=== PATIENT | female | born 1940 | race Caucasian/White ===

== ENCOUNTER 2016-10-03 14:15 | Emergency (ER) | payer MEDICARE ==
[2016-10-03] MEDS ORDERED: DIPHENHYDRAMINE 50 MG/ML VIAL ONE (14:53)
[2016-10-03] MEDS ORDERED: HALOPERIDOL 5 MG/ML VIAL ONE (14:53)
[2016-10-03] MEDS ORDERED: NORMAL SALINE 500 ML IV ONE (14:54)
--- NOTE | 2016-10-03 14:57 | CT REPORT ---
HISTORY: Headache, nausea, vomiting, dizziness COMPARISON: None. TECHNIQUE: Axial non-contrast images obtained from skull vertex through foramen magnum. Dose reduction technique was utilized. FINDINGS: BRAIN: There is age related atrophy and decreased attenuation in the periventricular white matter consistent with chronic small vessel ischemic change. No acute intracranial hemorrhage. No mass effect or hyd rocephalus. There is no CT evidence of infarction. BONES AND EXTRACRANIAL SOFT TISSUES: The orbits are unremarkable. The paranasal sinuses and mastoid air cells are clear. The calvarium is intact. IMPRESSION: 1. No acute intracranial abnormality. 2. Age related atrophy and sequela of chronic microvascular ischemia. Final Electronic Signature: This report was electronically signed by Chente Flores MD on 10/03/2016 2:55 PM. dayana /
--- NOTE | 2016-10-03 16:14 | ER PHYSICIAN DOCUMENTATION ---
Physician Documentation [facility] Name:Joy Calvo Age:76 yrs Sex:Female :1940 Arrival Date:10/03/2016 Time:14:16 Bed1 Private MD: Edgar Thakur Disposition: 10/05 01:11 Chart complete. tl1 Disposition: 10/03/16 15:57 Discharged to Home/Self Care. Impression: Dizziness - Vertigo, Benign Positional Vertigo. - Condition is Good. - Discharge Instructions: BENIGN POSITIONAL VERTIGO, VERTIGO, Unspecified. - Prescriptions for meclizine 12.5 mg Oral tablet - take 1 tablet by ORAL route 3 times per day As needed; 20 tablet. - Medical Reconciliation form form. - Follow up: Trevor Thorne MD; When: 1 - 2 days; Reason: Recheck today's complaints, Continuance of care. - Problem is new. - Symptoms have improved. HPI: 10/03 14:34 This 76 yrs old Female presents to ER via Wheelchair with complaints of tl1 Vomiting, Headache. 14:34 She was well until 0530 when she awakened with a typical ocular migraine characterized tl1 by a right jagged semicircular bright light, that lasted about 40 minutes, then resolved. She was then well until about an hour ago when she awakened from her nap and noted severe dizziness on awakening and had a difficult time walking to the bathroom This dizziness was described as both a lightheadedness and a spinning sensation that was worse with changing head positions. She then lay down and a short time later noted a sharp "pick" like severe pain. She has chronic tinnitus; unchanged. No change in her hearing. Denies focal numbness, weakness or tingling. No diplopia. No speech changes.. Historical: - Allergies: Ciprofloxacin (Upset stomach); diclofenac sodium; Norvasc (orthostatic ); Biaxin; Lisinopril (cough ); Desyrel; Prednisone (Upset stomach); Niacin (pruritis); Zetia (myalgias ); Tricor; Vioxx; Lovastatin; Compazine; - PMHx: osteopenia; spinal stenosis; DEGENERATIVE DISC DISEASE; OSTEOARTHRITIS; GI BLEED; IRRITABLE BOWEL SYNDROME; constipation; GERD; HYPERTENSION; MIGRAINES; HYPOTHYROIDISM; DEPRESSION; - Tetanus: < 10 years. - Ebola Screening: : Patient negative for fever greater than or equal to 101.5 degrees Fahrenheit, and additional compatible Ebola Virus Disease symptoms. Patient denies exposure to infectious person. Patient denies travel to an Ebola-affected area in the 21 days before illness onset. No symptoms or risks identified at this time. . - Immunization history: Flu Vaccine < 1 year. - Social history: Smoking status: Patient states was never smoker of tobacco. ROS: 14:46 Abdomen/GI: Negative for abdominal pain, diarrhea, abdominal cramps, hematemesis, tl1 black/tarry stool, bowel incontinence. 14:46 All other systems are negative. Exam: 14:46 Head/Face: Normocephalic, atraumatic. tl1 Eyes: Pupils equal round and reactive to light, extra-ocular motions intact. Lids and lashes normal. Conjunctiva and sclera are non-icteric and not injected. Cornea within normal limits. Periorbital areas with no swelling, redness, or edema. ENT: Nares patent. No nasal discharge, no septal abnormalities noted. Tympanic membranes are normal and external auditory canals are clear. Oropharynx with no redness, swelling, or masses, exudates, or evidence of obstruction, uvula midline. Mucous membranes moist. 14:46 Neck: Trachea midline, no thyromegaly or masses palpated, and no cervical tl1 lymphadenopathy. Supple, full range of motion without nuchal rigidity, or vertebral point tenderness. No Meningismus. 14:46 Constitutional: The patient appears alert, awake, non-diaphoretic, non-toxic, well developed, well hydrated, well groomed, well nourished, in obvious distress, mildly distressed, uncomfortable. 14:46 Cardiovascular: Rate: normal, Rhythm: regular, Heart sounds: normal, Edema: 1+ edema to level of left ankle and right ankle. 14:46 Respiratory: the patient does not display signs of respiratory distress, Respirations: normal, Breath sounds: are normal. 14:46 Abdomen/GI: Inspection: abdomen appears normal. 14:46 Back: CVA tenderness, is absent. Vital Signs: 14:18 BP 135 / 65; Pulse 58; Resp 18; Temp 97.8(O); Pulse Ox 98% on R/A; Weight 47.17 kg (R); arc Height 4 ft. 11 in. (149.86 cm) (R); Pain 8/10; 16:13 BP 133 / 74; Pulse 18; Resp 18; Pulse Ox 95% on R/A; Pain 0/10; bw2 14:18 Body Mass Index 21.01 (47.17 kg, 149.86 cm) arc NIH Stroke Scale Scores: 14:26 NIHSS Score: 0 bw2 MDM: 14:30 Patient medically screened. tl1 16:30 Differential diagnosis: central vs peripheral vertigo. Data reviewed: vital signs, tl1 nurses notes, radiologic studies, CT scan, and as a result, I will discharge patient. Counseling: I had a detailed discussion with the patient and/or guardian regarding: the historical points, exam findings, and any diagnostic results supporting the discharge/admit diagnosis, the need for outpatient follow up, with the patient's primary care provider, to return to the emergency department if symptoms worsen or persist or if there are any questions or concerns that arise at home. Response to treatment: the patient's symptoms have markedly improved after treatment, and as a result, I will discharge patient. ED course: During her initial exam she was unable to tolerate the Halpike/Pemberton maneuver. Her head CT showed no apparent acute abnormalities. I told her I thought the chance that this is a centrally mediated vertigo is small. If her symptoms persist, she may need an MRI, which is unavailable today. She is comfortable going home with her and he is confident he can care for her in the short term. She needs to f/u with her PCP on Tuesday,, tomorrow.. 10/03 14:59 Order name: CAT SCAN; HEAD W/O CON [id number]; Complete Time: 15:55 EDMS 10/03 15:44 Interpretation: age related ischemic changes. NAD. See radiologist report. tl1 Dispensed Medications: 14:48 Drug: Haldol 2.5 mg; Route: IVP; Site: left antecubital; bw2 15:07 Follow up: Response: No adverse reaction bw2 14:48 Drug: Benadryl 25 mg; Route: IVP; Site: left antecubital; bw2 15:08 Follow up: Response: No adverse reaction bw2 14:48 Drug: NS 0.9% 500 ml; Route: IV; Rate: bolus; Site: left antecubital; bw2 16:14 Follow up: IV Status: Completed infusion bw2 NIH Stroke Scale - NIH Stroke Score Date: 10/03/2016 Time: 14:26 Total Score = 0 1a. Level of Consciousness (LOC) - 0(Alert) 1b. Level of Consciousness (LOC) (Year & Age) - 0(Both) 1c. LOC Commands (Open & Closes Eyes/[place]) - 0(Both) 2. Best Gaze (Lateral Gaze Paresis) - 0(Normal) 3. Visual Field Loss - 0(No visual loss) 4. Facial Palsy - 0(Normal) 5a. Left Arm: Motor (10-second hold) - 0(No drift) 5b. Right Arm: Motor (10-second hold) - 0(No drift) 6a. Left Leg: Motor (5-second hold ? always test supine) - 0(No drift) 6b. Right Leg: Motor (5-second hold ? always test supine) - 0(No drift) 7. Limb Ataxia (finger/nose & heel/robin ? test with eyes open) - 0(Absent) 8. Sensory Loss (pinprick arms/legs/face) - 0(Normal) 9. Best Language: Aphasia (description/naming/reading) - 0(No aphasia) 10. Dysarthria (speech clarity ? read or repeat words) - 0(Normal) 11. Extinction and Inattention (visual/tactile/auditory/spatial/personal) - 0(No abnormality) Initials: 2 Signatures: Edgar De Oliveira MD MD tl1 Alesha Kelly bw2
--- NOTE | 2016-10-03 16:14 | ER NURSING DOCUMENTATION ---
Nurse's Notes [facility] Name:Joy Calvo Age:76 yrs Sex:Female :1940 Arrival Date:10/03/2016 Time:14:16 Bed1 Private MD: Diagnosis:Dizziness - Vertigo;Benign Positional Vertigo Presentation: 10/03 14:21 Presenting complaint: Patient states: she has a headache and bi lateral leg weakness. bw2 pt also complains of dizziness. Transition of care: patient was not received from another setting of care. 14:21 Acuity: SUZANNA 2 bw2 14:21 Method Of Arrival: Wheelchair bw2 Triage Assessment: 14:25 General: Appears in no apparent distress, Behavior is anxious, appropriate for age, bw2 cooperative. Pain: Complains of pain in left temporal area Pain currently is 8 out of 10 on a pain scale. Quality of pain is described as Pain began 4 hours ago Alleviated by nothing. GI: Reports. Historical: - Allergies: Ciprofloxacin (Upset stomach); diclofenac sodium; Norvasc (orthostatic ); Biaxin; Lisinopril (cough ); Desyrel; Prednisone (Upset stomach); Niacin (pruritis); Zetia (myalgias ); Tricor; Vioxx; Lovastatin; Compazine; - PMHx: osteopenia; spinal stenosis; DEGENERATIVE DISC DISEASE; OSTEOARTHRITIS; GI BLEED; IRRITABLE BOWEL SYNDROME; constipation; GERD; HYPERTENSION; MIGRAINES; HYPOTHYROIDISM; DEPRESSION; - Tetanus: < 10 years. - Ebola Screening: : Patient negative for fever greater than or equal to 101.5 degrees Fahrenheit, and additional compatible Ebola Virus Disease symptoms. Patient denies exposure to infectious person. Patient denies travel to an Ebola-affected area in the 21 days before illness onset. No symptoms or risks identified at this time. . - Immunization history: Flu Vaccine < 1 year. - Social history: Smoking status: Patient states was never smoker of tobacco. Screenin:27 Infectious Disease Risk None. Abuse screen: Denies threats or abuse. Nutritional bw2 screening: No deficits noted. Assessment: 14:26 Neuro: Reports headache weakness since this morning. GI: No deficits noted. Abdomen is bw2 flat. 15:45 Reassessment: pt states that her headache is improved. pt states that she is still bw2 dizzy . Vital Signs: 14:18 BP 135 / 65; Pulse 58; Resp 18; Temp 97.8(O); Pulse Ox 98% on R/A; Weight 47.17 kg (R); arc Height 4 ft. 11 in. (149.86 cm) (R); Pain 8/10; 16:13 BP 133 / 74; Pulse 18; Resp 18; Pulse Ox 95% on R/A; Pain 0/10; bw2 14:18 Body Mass Index 21.01 (47.17 kg, 149.86 cm) arc NIH Stroke Scale Scores: 14:26 NIHSS Score: 0 bw2 ED Course: 14:18 Patient arrived in ED. dp 14:21 Alesha Kelly is Primary Nurse. bw2 14:22 Triage completed. bw2 14:27 Valuables Remains with patient Patient has correct armband on for positive bw2 identification. Placed in gown. Bed in low position. 14:30 Edgar De Oliveira MD is Attending Physician. tl1 14:32 Inserted peripheral IV: 20 gauge in left antecubital area and blood collected. arc 15:55 Trevor Thorne MD is Referral Physician. tl1 Administered Medications: 14:48 Drug: Haldol 2.5 mg; Route: IVP; Site: left antecubital; bw2 15:07 Follow up: Response: No adverse reaction bw2 14:48 Drug: Benadryl 25 mg; Route: IVP; Site: left antecubital; bw2 15:08 Follow up: Response: No adverse reaction bw2 14:48 Drug: NS 0.9% 500 ml; Route: IV; Rate: bolus; Site: left antecubital; bw2 16:14 Follow up: IV Status: Completed infusion bw2 Outcome: 15:57 Discharge ordered by . tl1 16:13 Discharged to home via wheelchair, with significant other. bw2 16:13 Condition: good 16:13 Discharge Assessment: Patient awake, alert and oriented x 3. No cognitive and/or functional deficits noted. Patient verbalized understanding of disposition instructions. 16:13 Discharge instructions given to patient, significant other, Instructed on discharge instructions, follow up and referral plans. medication usage, Demonstrated understanding of instructions, medications, Prescriptions given X 1. 16:14 Patient left the ED. bw2 10/04 11:52 Discharge F/U Call: Spoke with: patient. 11:52 Discharge F/U Call: Have you filled your prescriptions? no. Reasons not filled: bebeto FEELING BETTER, WILL GET LATER Did your discharge instructions answer all of your questions? yes NIH Stroke Scale - NIH Stroke Score Date: 10/03/2016 Time: 14:26 Total Score = 0 1a. Level of Consciousness (LOC) - 0(Alert) 1b. Level of Consciousness (LOC) (Year & Age) - 0(Both) 1c. LOC Commands (Open & Closes Eyes/[employer] Officer) - 0(Both) 2. Best Gaze (Lateral Gaze Paresis) - 0(Normal) 3. Visual Field Loss - 0(No visual loss) 4. Facial Palsy - 0(Normal) 5a. Left Arm: Motor (10-second hold) - 0(No drift) 5b. Right Arm: Motor (10-second hold) - 0(No drift) 6a. Left Leg: Motor (5-second hold ? always test supine) - 0(No drift) 6b. Right Leg: Motor (5-second hold ? always test supine) - 0(No drift) 7. Limb Ataxia (finger/nose & heel/robin ? test with eyes open) - 0(Absent) 8. Sensory Loss (pinprick arms/legs/face) - 0(Normal) 9. Best Language: Aphasia (description/naming/reading) - 0(No aphasia) 10. Dysarthria (speech clarity ? read or repeat words) - 0(Normal) 11. Extinction and Inattention (visual/tactile/auditory/spatial/personal) - 0(No abnormality) Initials: bw2 Signatures: Isamar Atkinson RN RN Roxie Arita pm1 Edgar De Oliveira MD MD tl1 Jessica Thompson, Gavino KellyUniversity [facility] bw2 Luz Reyna
== END 2016-10-03 16:14 | disposition home or self-care (01) ==
LOC: ER 14:16
DX: H81.10 Benign paroxysmal vertigo, unspecified ear (principal); R60.0 Localized edema; R11.10 Vomiting, unspecified
CPT/HCPCS: 70450; 96361; 96374; 96375; 99284; J1200; J1630; J7040